=== PATIENT | male | born 1965 | race Caucasian/White ===

== ENCOUNTER 2023-01-21 12:20 | Emergency (ER) | payer BC ==
[~2023-01-21] VITALS: Ht 188 cm; Wt 97.5 kg
[2023-01-21 12:20] VITALS: BP_SYST 148; PULSE 64; RESP 18; TEMP 98.8; O2SAT 94
[2023-01-21] MEDS ORDERED: IBUP-1971 PO (13:26)
[2023-01-21] MEDS ORDERED: TRAM50TA2 PO (13:26)
[2023-01-21 13:38] VITALS: BP_SYST 122; PULSE 60; RESP 20; TEMP 98.8; O2SAT 96
[2023-01-21] MEDS ORDERED: ASPIRIN 81 MG TAB.CHEW ONE (20:31)
== END 2023-01-21 13:40 | disposition home or self-care (01) ==
LOC: SED 12:20
DX: S46.211A Strain of muscle, fascia and tendon of other parts of biceps, right arm, initial encounter (principal); X50.0XXA Overexertion from strenuous movement or load, initial encounter; Y93.89 Activity, other specified; Y92.89 Other specified places as the place of occurrence of the external cause; Y99.8 Other external cause status
CPT/HCPCS: 99283